=== PATIENT | female | born 1965 | race Caucasian/White ===

== ENCOUNTER 2022-08-30 12:51 | Emergency (ER) | payer MEDICARE, MEDICAID, SELFPAY ==
[2022-08-30] VITALS (7 sets, daily range): BP systolic 127; BP diastolic 68; PULSE 73–86; RESP 18; TEMP 36.8; O2SAT 96–99
--- NOTE | 2022-08-30 18:07 | ED.ABDPAIN ---
HPI - Abdominal Pain General Chief Complaint: Abdominal Pain Stated Complaint: Cramping/abdominal pain Time Seen by Provider: 08/30/22 18:06 Source: patient Mode of arrival: Wheelchair History of Present Illness HPI narrative: 57F nonsmoker with history of prior stroke presents with her son in the chief complaint of sudden onset right lower quadrant and epigastric pain. Patient has some nausea but denies any vomiting. Patient has had no fever or chills. Patient was in normal state of health and denies any new medications or dietary change when she developed a sudden onset right lower quadrant pain. She has an expressive aphasia secondary to her remote stroke but does a very good job of communicating nonverbally and also with some broken speech. It seems that there is no obvious provocation or palliation. She is had no fever chills and denies recent constipation or diarrhea. She is had no dysuria, frequency or urgency. Related Data Previous Rx's Medication Instructions Recorded hyoscyamine sulfate 0.125 mg tablet 0.125 mg PO BID-QID PRN dyspepsia 08/30/22 #20 tabs Allergies Allergy/AdvReac Type Severity Reaction Status Date / Time No Known Drug Allergies Allergy Verified 08/30/22 13:32 Review of Systems Review of Systems Narrative: GENERAL: Denies chills, fatigue, malaise, fever, sweats. HEENT: Denies sinus pain, ear pain, sore throat, difficulty swallowing, dizziness. RESPIRATORY: Denies dyspnea, cough, wheezing, hemoptysis, sputum. CARDIOVASCULAR: Denies chest pain, palpitations, orthopnea, edema, GASTROINTESTINAL: See HPI : Denies dysuria, frequency, incontinence, hematuria, urinary retention. MUSCULOSKELETAL: denies weakness, joint pain, or bony pain SKIN: Denies rash, skin lesions, or other NEUROLOGIC: Denies weakness, headache, numbness, change in speech, confusion, seizures, incoordination. PSYCHIATRIC: No concerning psychosocial issues. 12 point review of systems is negative except for those stated above Exam Narrative Exam Narrative: GENERAL: [57] year old patient appears stated age. Well-developed patient, in mild distress. Expressive aphasia, appears uncomfortable HEAD: Atraumatic. Normocephalic. EYES: Pupils equal round and reactive. Extraocular motions intact. No scleral icterus. No injection or drainage. ENT: Nose without bleeding, purulent drainage. Throat without erythema, tonsillar hypertrophy or exudate. Airway patent. NECK: Trachea midline. Non tender CARDIOVASCULAR: Regular rate and rhythm without murmurs, gallops, or rubs. RESPIRATORY: Clear to auscultation. Breath sounds equal bilaterally. No wheezes, rales, or rhonchi. GASTROINTESTINAL: Abdomen soft, tender in epigastrum and RLQ. Bowel sounds present in all 4 quadrants. EXTREMITIES: No edema or joint tenderness. BACK: Nontender without deformity or crepitance. No flank tenderness. NEURO: CNII-XII SKIN: No rash or erythema of visible areas Initial Vital Signs Initial Vital Signs: Vital Signs Temperature 98.2 F 08/30/22 13:25 Pulse Rate 86 08/30/22 13:25 Respiratory Rate 18 08/30/22 13:25 Blood Pressure 127/68 08/30/22 13:25 Pulse Oximetry 98 08/30/22 13:25 Oxygen Delivery Method 08/30/22 13:25 Course Orders Ordered: ED Orders 08/30/22 18:08 XR abdomen min 2V Stat 08/30/22 19:09 CT abdomen pelvis w con Stat Discontinued Medications Sodium Chloride (Normal Saline 0.9%) 1,000 mls @ 150 mls/hr IV CONT MADINA Vital Signs Vital signs: Vital Signs - 8 hr 08/30/22 17:22 08/30/22 17:30 08/30/22 18:00 Pulse Rate 75 78 74 Pulse Oximetry 96 96 98 08/30/22 18:30 08/30/22 19:00 08/30/22 19:30 Pulse Rate 76 77 73 Pulse Oximetry 97 98 99 MDM - Abdominal Pain Lab Data Result diagrams: 08/30/22 13:46 08/30/22 13:46 Labs: Lab Results 08/30/22 08/30/22 Range/Units 13:46 13:46 WBC 11.0 (4.5-11.0) X10^3/uL RBC 5.06 (4.0-5.2) X10^6/uL Hgb 14.7 (12.0-16.0) g/dL Hct 43.5 (36-46) % MCV 86.0 (80-100) fL MCH 29.1 (26-34) PG MCHC 33.9 (30-36) % RDW 14.4 (11.6-14.8) % Plt Count 352 (150-400) X10^3/uL Neut % (Auto) 78.0 H (50-75) % Lymph % (Auto) 16.4 L (25-40) % Republic % (Auto) 2.9 L (3-14) % Eos % (Auto) 1.6 L (2-4) % Baso % (Auto) 1.1 (0-2) % Neut # (Auto) 8600 H (8877-0659) /uL Lymph # (Auto) 1800 (4518-8557) /uL Republic # (Auto) 300 (0-900) /uL Eos # (Auto) 200 (0-450) /uL Baso # (Auto) 100 (0-100) /uL Sodium 143 (137-145) mmol/L Potassium 3.8 (3.4-5.1) mmol/L Chloride 107 (98-107) mmol/L Carbon Dioxide 23 (22-32) mmol/L BUN 17 (7-17) mg/dL Creatinine 0.61 (0.52-1.04) mg/dL Estimated GFR > 60 (>60) mL/min BUN/Creatinine Ratio 27.9 H (6-22) Glucose 131 H (70-100) mg/dL Calcium 9.5 (8.4-10.2) mg/dL Total Bilirubin 0.3 (0.2-1.3) mg/dL AST 19 (14-36) IU/L ALT 13 (<35) IU/L Alkaline Phosphatase 134 H (38-126) U/L Total Protein 8.3 H (6.3-8.2) g/dL Albumin 4.4 (3.5-5.0) g/dL Globulin 3.9 (1.7-4.1) g/dL Albumin/Globulin Ratio 1.1 (1.0-2.8) Lipase 90 (23-300) U/L Imaging Data Abdominal x-ray: Radiologist's Impression: [address] [address] XRay Report Signed Patient: Cora Yun MR#: [id number] : 1965 Acct:[id number] Age/Sex: 57 / F Date of Service: 08/30/22 Loc: ED Accession Number: [id number] ?? Procedure: XR abdomen min 2V Ordering Provider: Ravin Palacios D.O. PROCEDURE:? XR ABDOMEN MIN 2V ? INDICATIONS:? abdominal pain ? TECHNIQUE:? 2 views of the abdomen were acquired.? ? COMPARISON:? None. ? FINDINGS:? Surgical changes and devices:? None.? ? Bowel:? No pneumoperitoneum.? The bowel gas pattern is normal.? ? Soft tissues:? No masses; visualized solid organ contours appear normal in size.? No suspicious abdominal calcifications.? ? Bones:? No suspicious bony abnormalities.? Bilateral hip arthroplasties. ? IMPRESSION:? Nonobstructive bowel gas pattern. ? ? Dictated by: Mohan Kuhn M.D. on 08/30/2022 at 19:07 ? ? Approved by: Mohan Kuhn M.D. on 08/30/2022 at 19:07 ? CT scan - abdomen/pelvis: Radiologist's Impression: [place] [address] CT Scan Report Signed Patient: Cora Yun MR#: [id number] : 1965 Acct:[id number] Age/Sex: 57 / F Date of Service: 08/30/22 Loc: ED Accession Number: [id number] ?? Procedure: CT abdomen pelvis w con Ordering Provider: Ravin Palacios D.O. PROCEDURE:? CT ABDOMEN PELVIS W CON ? INDICATIONS:? severe abdominal pain ? TECHNIQUE:? After the administration of intravenous contrast, axial sections acquired from the lung bases to the pubic symphysis.? Coronal and sagittal reformats were performed.? For radiation dose reduction, the following was used:? automated exposure control, adjustment of mA and/or kV according to patient size.? ? COMPARISON:? None. ? FINDINGS:? Image quality:? Excellent.? ? Lung bases:? Unremarkable. Heart:? No significant findings. ? ABDOMEN: Liver:? Unremarkable.? ? Gallbladder:? Normal.? ? Biliary ducts:? Unremarkable.? ? Pancreas:? Unremarkable.? ? Spleen:? Unremarkable.? ? Adrenal Glands:? Unremarkable.? ? Kidneys and Ureters:? Unremarkable.? ? ? Stomach and Bowel:? Stomach, small bowel loops, and colon are unremarkable.? Peritoneum:? No abnormal intraperitoneal fluid.? No free air.? ? Ventral Wall: ? No hernias.? Abdominal Nodes:? No retroperitoneal or mesenteric adenopathy by size criteria.? Vessels:? Aorta and inferior vena cava are normal in size.? ? PELVIS: Pelvic Organs:? Unremarkable.? ? Bladder:? Unremarkable.? ? Pelvic Nodes: No enlarged lymph nodes.? Miscellaneous: No hernias are seen. ? ? A normal appearing appendix is identified at the right lower quadrant. ? Bones:? Bilateral hip arthroplasties which produce metal artifact crossing the lower 3rd of the pelvis, and therefore a small portion of the colon is not clearly visualized in this area..? IMPRESSION:? A source of severe abdominal pain is not found.? Normal appendix seen.? Portions of the lowest 3rd of the pelvis are relatively poorly visualized due to metal artifact from bilateral hip arthroplasties. ? ? Dictated by: Tima Jiang M.D. on 08/30/2022 at 20:46 ? ? Approved by: Tima Jiang M.D. on 08/30/2022 at 20:48 ? MDM Narrative Medical decision making narrative: Multiple etiologies for patient's symptoms considered include, but not limited to: [Bowel obstruction versus kidney stone versus diverticulitis versus other Patient's symptoms improved over duration of stay with above-stated therapies. History, physical exam, labs, imaging, and response to therapies have been reassuring. Findings and discharge diagnosis discussed with patient/family followed by verbalization of understanding Return precautions discussed with patient/family whom verbalize understanding. Pain has been well controlled and patient is tolerating oral hydration. Discharge Plan Departure Patient Disposition: Home Clinical Impression: Abdominal pain Instructions: DI for Abdominal Pain-Adult Activity Restrictions/Additional Instructions: *You have been diagnosed with [abdominal pain] * As we discussed your history and physical exam as well as labs and imaging are very reassuring. There is no evidence of any severe diagnoses that would require a specific or immediate intervention. *What to do: *Please continue to take your regular medications as directed. [x ] New medication prescriptions sent to your pharmacy: [ [facility] in [place]] *Please follow up with your primary care provider in 2-3 days, call for an appointment. Let them know you were seen in the Emergency Department and that we ask that you be seen in follow up. We will electronically transmit a record of today's note if your PCP is in our system *Please consider a clear liquid diet for the next 24-48 hours and then slowly advance to regular as tolerated. Also, try to avoid alcohol, nicotine, caffeine, spicy, acidic or fatty foods as this may worsen your symptoms *If you do not have a primary care provider please contact the [facility] Resource line at [phone]. They will ask some questions about your medical history and help get you set up with a doctor in the community. *Return to Emergency Department if you should have any new, worsening or concerning symptoms, such as [fever greater than 101 F, shaking chills, worsening pain, persistent vomiting or other bothersome symptoms] Prescriptions: New hyoscyamine sulfate 0.125 mg tablet 0.125 mg PO BID-QID PRN (Reason: dyspepsia) Qty: 20 0RF Visit Report Forms: Patient Portal/API
--- NOTE | 2022-08-30 18:08 | DI.RAD.S_ITS ---
PROCEDURE: XR ABDOMEN MIN 2V INDICATIONS: abdominal pain TECHNIQUE: 2 views of the abdomen were acquired. COMPARISON: None. FINDINGS: Surgical changes and devices: None. Bowel: No pneumoperitoneum. The bowel gas pattern is normal. Soft tissues: No masses; visualized solid organ contours appear normal in size. No suspicious abdominal calcifications. Bones: No suspicious bony abnormalities. Bilateral hip arthroplasties. IMPRESSION: Nonobstructive bowel gas pattern. Dictated by: Mohan Kuhn M.D. on 08/30/2022 at 19:07 Approved by: Mohan Kuhn M.D. on 08/30/2022 at 19:07
[2022-08-30 18:23] LABS: Alanine Aminotransferase 13 IU/L (<35); Albumin 4.4 g/dL (3.5-5.0); Albumin Globulin Ratio 1.1 (1.0-2.8); Alkaline Phosphatase 134 U/L (38-126); Aspartate Aminotransferase 19 IU/L (14-36); BUN Creatinine Ratio 27.9 (6-22); Bilirubin Total 0.3 mg/dL (0.2-1.3); Blood Urea Nitrogen 17 mg/dL (7-17); Calcium 9.5 mg/dL (8.4-10.2); Carbon Dioxide 23 mmol/L (22-32); Chloride 107 mmol/L (98-107); Estimated Glomerular Filt Rate > 60 mL/min (>60); Globulin 3.9 g/dL (1.7-4.1); Glucose 131 mg/dL (70-100); HEMOLYSIS 19 (0-50); Lipase 90 U/L (23-300); Potassium 3.8 mmol/L (3.4-5.1); Sodium 143 mmol/L (137-145); Total Protein 8.3 g/dL (6.3-8.2)
[2022-08-30 18:27] LABS: Add Manual Diff / Slide Review NO; Basophils Absolute Auto 100 /uL (0-100); Basophils Percent Auto 1.1 % (0-2); Eosinophils Absolute Auto 200 /uL (0-450); Eosinophils Percent Auto 1.6 % (2-4); Hematocrit 43.5 % (36-46); Hemoglobin 14.7 g/dL (12.0-16.0); Lymphocytes Absolute Auto 1800 /uL (1100-4500); Lymphocytes Percent Auto 16.4 % (25-40); Mean Corpuscular HGB Conc 33.9 % (30-36); Mean Corpuscular Hemoglobin 29.1 PG (26-34); Monocytes Absolute Auto 300 /uL (0-900); Monocytes Percent Auto 2.9 % (3-14); Neutrophils Absolute Auto 8600 /uL (1500-7000); Platelet Count 352 X10^3/uL (150-400); Red Blood Cell Count 5.06 X10^6/uL (4.0-5.2); Red Cell Distribution Width 14.4 % (11.6-14.8)
--- NOTE | 2022-08-30 19:09 | DI.CT.S_ITS ---
PROCEDURE: CT ABDOMEN PELVIS W CON INDICATIONS: severe abdominal pain TECHNIQUE: After the administration of intravenous contrast, axial sections acquired from the lung bases to the pubic symphysis. Coronal and sagittal reformats were performed. For radiation dose reduction, the following was used: automated exposure control, adjustment of mA and/or kV according to patient size. COMPARISON: None. FINDINGS: Image quality: Excellent. Lung bases: Unremarkable. Heart: No significant findings. ABDOMEN: Liver: Unremarkable. Gallbladder: Normal. Biliary ducts: Unremarkable. Pancreas: Unremarkable. Spleen: Unremarkable. Adrenal Glands: Unremarkable. Kidneys and Ureters: Unremarkable. Stomach and Bowel: Stomach, small bowel loops, and colon are unremarkable. Peritoneum: No abnormal intraperitoneal fluid. No free air. Ventral Wall: No hernias. Abdominal Nodes: No retroperitoneal or mesenteric adenopathy by size criteria. Vessels: Aorta and inferior vena cava are normal in size. PELVIS: Pelvic Organs: Unremarkable. Bladder: Unremarkable. Pelvic Nodes: No enlarged lymph nodes. Miscellaneous: No hernias are seen. A normal appearing appendix is identified at the right lower quadrant. Bones: Bilateral hip arthroplasties which produce metal artifact crossing the lower 3rd of the pelvis, and therefore a small portion of the colon is not clearly visualized in this area.. IMPRESSION: A source of severe abdominal pain is not found. Normal appendix seen. Portions of the lowest 3rd of the pelvis are relatively poorly visualized due to metal artifact from bilateral hip arthroplasties. Dictated by: Tima Jiang M.D. on 08/30/2022 at 20:46 Approved by: Tima Jiang M.D. on 08/30/2022 at 20:48
== END 2022-08-30 21:25 | disposition home or self-care (01) ==
PROVIDERS: Emergency Provider Emergency Medicine
DX: R10.31 Right lower quadrant pain (principal)
CPT/HCPCS: 74019; 74177; 80053; 83690; 85025; 99281; 99284; Q9967

== ENCOUNTER 2025-03-07 18:20 | Emergency (ER) | payer MEDICARE, MEDICAID, SELFPAY ==
[2025-03-07] VITALS (16 sets, daily range): BP systolic 166–201; BP diastolic 79–115; PULSE 66–84; RESP 20–25; TEMP 36.9; O2SAT 95–100
--- NOTE | 2025-03-07 19:01 | EKG_ITS ---
[address] [address] Test Date: 2025-03-07 Pat Name: Cora Yun Department: [facility] Room: Gender: Female [employer] Helper: JOE : 1965 Requested By: Order Number: [id number] Reading MD: Bear Armstrong Measurements Intervals [place] Rate: 80 P: 55 NM: 162 QRS: -20 QRSD: 88 T: 32 QT: 414 QTc: 477 Interpretive Statements Normal sinus rhythm Nonspecific ST abnormality Electronically Signed On 03-07-2025 20:12:14 PDT by Bear Armstrong
--- NOTE | 2025-03-07 19:01 | DI.RAD.S_ITS ---
PROCEDURE: XR CHEST 1V INDICATIONS: chest pain TECHNIQUE: One view of the chest was acquired. COMPARISON: None. FINDINGS: Surgical changes and devices: Left shoulder arthroplasty with abnormal appearance of the glenoid/scapula. Lungs and pleura: Lungs are clear. Low lung volumes. No pleural effusions or pneumothorax. Mediastinum: Mediastinal contours appear normal. Heart size is normal. Bones and chest wall: No suspicious bony lesions. Overlying soft tissues appear unremarkable. IMPRESSION: No acute cardiopulmonary abnormality is seen. Left shoulder arthroplasty with abnormal appearance of the glenoid/scapula. Consider nonurgent dedicated left shoulder imaging. Dictated by: Joshua Newberry M.D. on 03/07/2025 at 21:12 Approved by: Joshua Newberry M.D. on 03/07/2025 at 21:13
[2025-03-07 19:44] LABS: Add Manual Diff / Slide Review NO; Basophils Absolute Auto 100 /uL (0-100); Eosinophils Absolute Auto 300 /uL (0-450); Eosinophils Percent Auto 4.3 % (2-4); Hematocrit 34.8 % (36-46); Hemoglobin 11.6 g/dL (12.0-16.0); Lymphocytes Absolute Auto 1800 /uL (1100-4500); Lymphocytes Percent Auto 27.6 % (25-40); Mean Corpuscular HGB Conc 33.4 % (30-36); Mean Corpuscular Volume 83.8 fL (80-100); Monocytes Absolute Auto 400 /uL (0-900); Monocytes Percent Auto 6.4 % (3-14); Neutrophils Absolute Auto 4000 /uL (1500-7000); Neutrophils Percent Auto 60.7 % (50-75); Platelet Count 358 X10^3/uL (150-400); Red Blood Cell Count 4.15 X10^6/uL (4.0-5.2); Red Cell Distribution Width 14.3 % (11.6-14.8); White Blood Cell Count 6.7 X10^3/uL (4.5-11.0)
[2025-03-07 19:56] LABS: Alanine Aminotransferase 13 IU/L (<35); Albumin 3.9 g/dL (3.5-5.0); Albumin Globulin Ratio 1.3 (1.0-2.8); Alkaline Phosphatase 100 U/L (38-126); Aspartate Aminotransferase 15 IU/L (14-36); BUN Creatinine Ratio 14.8 (6-22); Bilirubin Total 0.3 mg/dL (0.2-1.3); Blood Urea Nitrogen 9 mg/dL (7-17); Calcium 9.2 mg/dL (8.4-10.2); Carbon Dioxide 28 mmol/L (22-32); Chloride 103 mmol/L (98-107); Creatine Kinase 28 U/L (30-135); Estimated Glomerular Filt Rate > 60 mL/min (>60); Globulin 2.9 g/dL (1.7-4.1); Glucose 157 mg/dL (80-110); HEMOLYSIS 15 (0-50); Lipase 52 U/L (23-300); Potassium 2.8 mmol/L (3.4-5.1); Sodium 139 mmol/L (137-145); Total Protein 6.8 g/dL (6.3-8.2)
[2025-03-07 20:08] LABS: Troponin I < 0.012 ng/mL (0.01-0.034)
[2025-03-07] MEDS: POTASSIUM CHLORIDE IN WATER 10 MEQ/100 ML PIGGYBACK 100 MEQ IV (20:55)
--- NOTE | 2025-03-07 21:22 | PC.NURSE ---
Patient crying and very upset with potassium infusing, potassium is running with fluids, this RN slows down the infusion rate to 75ml/hr and patient is still crying out in pain. Rate slowed to 50ml/hr and patient continues to cry, this RN notifies Dr Brewster who orders to stop the potassium at this time.
--- NOTE | 2025-03-07 22:31 | ED.GENADULT ---
HPI - General Adult General Chief complaint: Hypertension Stated complaint: Hypertension Time Seen by Provider: 03/07/25 22:25 Source: EMS Mode of arrival: EMS History of Present Illness HPI narrative: Patient is a 60-year-old female history of CVA with right-sided deficits resides at [facility] with hypertension. Systolic was in the 200s no presenting today with hypertension. Reports of recent would be evaluation for rule out DVT. Patient denies any symptoms. Has chronic right-sided deficits no chest pain no nausea or vomiting. He has an overall poor historian but appears comfortable low pressure is initially 180/89. At looking at the [facility] it appears that patient was on losartan 50 mg but on March 06 yesterday it was increased to 100 mg. Unclear when she takes this medication. Related Data Previous Rx's Medication Instructions Recorded hyoscyamine sulfate 0.125 mg tablet 0.125 mg PO BID-QID PRN dyspepsia 08/30/22 #20 tabs Allergies Allergy/AdvReac Type Severity Reaction Status Date / Time No Known Drug Allergies Allergy Verified 08/30/22 13:32 Patient History Social History Smoking Status: Never smoker Smoking Status: Never smoker Exam Initial Vital Signs Initial Vital Signs: Vital Signs Temperature 98.4 F 03/07/25 18:22 Pulse Rate 78 03/07/25 18:22 Respiratory Rate 20 03/07/25 18:22 Blood Pressure 180/89 H 03/07/25 18:22 Pulse Oximetry 100 03/07/25 18:22 Oxygen Delivery Method Room Air 03/07/25 18:22 GENERAL: Alert pleasant 60-year-old female and in [no acute] distress. HEENT: Head atraumatic,EOMI, pupils reactive, face symmetric, [moist] mucous membranes CARDIOVASCULAR: Regular rate and rhythm without murmurs, rubs or gallops. RESPIRATORY: Breath sounds equal bilaterally, no wheezes rales or rhonchi. ABDOMEN: Soft, nontender. Normoactive bowel sounds all 4 quadrants. No guarding or rebound. EXTREMITIES: Normal range of motion, no clubbing or edema. Neurovascularly intact Right lower extremity strong distal pedal pulse felt slightly cooler to touch no significant delay in cap refill no gross bony deformity NEUROLOGICAL: Alert 60-year-old female right-sided deficits A&O times 0 SKIN: Warm, dry, no laceration, no petechiae, no rashes or lesions. Course Orders Ordered: ED Orders 03/07/25 19:01 XR chest 1V Stat EKG-12 Lead Stat 03/07/25 19:35 Complete Blood Count AUTO DIFF Stat Comprehensive Metabolic Panel Stat Lipase Stat Troponin & CK Cardiac Panel Stat 03/07/25 22:59 EKG-12 Lead Stat 03/07/25 23:13 Trop I [Troponin I] Stat Discontinued Medications POTASSIUM CHLORIDE IN WATER (Potassium Cl 10 Meq/100 Ml Keshia) 10 meq in 100 mls @ 100 mls/hr IV Q1H MADINA Stop: 03/07/25 22:44 Last Infusion: 03/08/25 00:09 Dose: Infused Documented By: Admin: 03/07/25 22:46 Dose: 65 mls/hr Documented By: Infusion: 03/07/25 22:45 Dose: Infused Documented By: Infusion: 03/07/25 21:40 Dose: 65 mls/hr Documented By: Infusion: 03/07/25 21:21 Dose: 0 mls/hr Documented By: Admin: 03/07/25 20:55 Dose: 100 mls/hr Documented By: EDDY POTASSIUM CHLORIDE IN WATER (Potassium Cl 10 Meq/100 Ml Keshia) 10 meq in 100 mls @ 100 mls/hr IV Q1H MADINA Stop: 03/08/25 02:29 Last Infusion: 03/08/25 02:43 Dose: Infused Documented By: Admin: 03/08/25 01:41 Dose: 100 mls/hr Documented By: Infusion: 03/08/25 01:33 Dose: Infused Documented By: Admin: 03/08/25 00:33 Dose: 100 mls/hr Documented By: SHELDON Losartan Potassium (Losartan 50 Mg Tablet) 50 mg PO NOW ONE Stop: 03/08/25 00:08 Last Admin: 03/08/25 00:15 Dose: 50 mg Documented By: SHELDON Vital Signs Vital signs: Vital Signs - 8 hr 03/07/25 20:00 03/07/25 20:00 03/07/25 20:30 Pulse Rate 76 Respiratory Rate 25 H Blood Pressure 180/82 H 175/82 H Pulse Oximetry 96 03/07/25 20:30 03/07/25 21:00 03/07/25 21:00 Pulse Rate 75 73 Respiratory Rate 22 25 H Blood Pressure 166/79 H Pulse Oximetry 96 97 03/07/25 21:30 03/07/25 21:30 03/07/25 22:00 Pulse Rate 68 84 Respiratory Rate 23 23 Blood Pressure 173/85 H Pulse Oximetry 03/07/25 22:00 03/07/25 22:08 03/07/25 22:08 Pulse Rate 68 Respiratory Rate 24 Blood Pressure 172/109 H 172/84 H Pulse Oximetry 97 03/07/25 22:30 03/07/25 22:30 03/07/25 22:51 Pulse Rate 75 Respiratory Rate 23 Blood Pressure 180/101 H 177/96 H Pulse Oximetry 97 03/07/25 22:51 03/07/25 23:00 03/07/25 23:00 Pulse Rate 70 66 Respiratory Rate 24 25 H Blood Pressure 182/102 H Pulse Oximetry 96 96 03/07/25 23:30 03/07/25 23:30 03/08/25 00:00 Pulse Rate 66 66 Respiratory Rate 24 22 Blood Pressure 201/98 H Pulse Oximetry 96 96 03/08/25 00:01 03/08/25 00:01 03/08/25 00:15 Pulse Rate 63 65 Respiratory Rate 21 Blood Pressure 196/94 H 196/94 H Pulse Oximetry 96 03/08/25 00:30 03/08/25 00:31 03/08/25 00:31 Pulse Rate 66 65 Respiratory Rate 24 24 Blood Pressure 193/95 H Pulse Oximetry 03/08/25 01:00 03/08/25 01:02 03/08/25 01:02 Pulse Rate 66 62 Respiratory Rate Blood Pressure 194/91 H Pulse Oximetry 97 91 03/08/25 01:15 03/08/25 01:15 03/08/25 01:30 Pulse Rate 63 Respiratory Rate Blood Pressure 193/94 H 209/94 H Pulse Oximetry 100 03/08/25 01:30 03/08/25 02:00 03/08/25 02:01 Pulse Rate 65 66 66 Respiratory Rate 18 Blood Pressure Pulse Oximetry 99 100 100 03/08/25 02:12 03/08/25 02:29 03/08/25 02:29 Pulse Rate 64 71 Respiratory Rate Blood Pressure 239/142 H Pulse Oximetry 97 97 03/08/25 02:30 03/08/25 03:00 03/08/25 03:01 Pulse Rate 63 62 Respiratory Rate Blood Pressure 193/101 H Pulse Oximetry 98 97 03/08/25 03:01 Pulse Rate 69 Respiratory Rate Blood Pressure Pulse Oximetry 97 Medical Decision Making Lab Data 03/07/25 19:35 03/07/25 19:35 Labs: Lab Results 03/07/25 03/07/25 Range/Units 19:35 23:13 WBC 6.7 (4.5-11.0) X10^3/uL RBC 4.15 (4.0-5.2) X10^6/uL Hgb 11.6 L (12.0-16.0) g/dL Hct 34.8 L (36-46) % MCV 83.8 (80-100) fL MCH 28.0 (26-34) PG MCHC 33.4 (30-36) % RDW 14.3 (11.6-14.8) % Plt Count 358 (150-400) X10^3/uL Neut % (Auto) 60.7 (50-75) % Lymph % (Auto) 27.6 (25-40) % [place] % (Auto) 6.4 (3-14) % Eos % (Auto) 4.3 H (2-4) % Baso % (Auto) 1.0 (0-2) % Neut # (Auto) 4000 (4293-9617) /uL Lymph # (Auto) 1800 (5006-1118) /uL [place] # (Auto) 400 (0-900) /uL Eos # (Auto) 300 (0-450) /uL Baso # (Auto) 100 (0-100) /uL Sodium 139 (137-145) mmol/L Potassium 2.8 L (3.4-5.1) mmol/L Chloride 103 (98-107) mmol/L Carbon Dioxide 28 (22-32) mmol/L BUN 9 (7-17) mg/dL Creatinine 0.61 (0.52-1.04) mg/dL Estimated GFR > 60 (>60) mL/min BUN/Creatinine Ratio 14.8 (6-22) Glucose 157 H (80-110) mg/dL Calcium 9.2 (8.4-10.2) mg/dL Total Bilirubin 0.3 (0.2-1.3) mg/dL AST 15 (14-36) IU/L ALT 13 (<35) IU/L Alkaline Phosphatase 100 (38-126) U/L Total Creatine Kinase 28 L (30-135) U/L Troponin I < 0.012 < 0.012 (0.01-0.034) ng/mL Total Protein 6.8 (6.3-8.2) g/dL Albumin 3.9 (3.5-5.0) g/dL Globulin 2.9 (1.7-4.1) g/dL Albumin/Globulin Ratio 1.3 (1.0-2.8) Lipase 52 (23-300) U/L Imaging Data Chest x-ray: Radiologist's Impression: PROCEDURE: XR CHEST 1V INDICATIONS: chest pain TECHNIQUE: One view of the chest was acquired. COMPARISON: None. FINDINGS: Surgical changes and devices: Left shoulder arthroplasty with abnormal appearance of the glenoid/scapula. Lungs and pleura: Lungs are clear. Low lung volumes. No pleural effusions or pneumothorax. Mediastinum: Mediastinal contours appear normal. Heart size is normal. Bones and chest wall: No suspicious bony lesions. Overlying soft tissues appear unremarkable. IMPRESSION: No acute cardiopulmonary abnormality is seen. Left shoulder arthroplasty with abnormal appearance of the glenoid/scapula. Consider nonurgent dedicated left shoulder imaging. Dictated by: Joshua Newberry M.D. on 03/07/2025 at 21:12 ECG Data Attestation: I personally reviewed and interpreted this ECG as follows: Prior ECG tracings: not available for review Interpretation: Sinus rhythm rate 80 OR interval 162 QRS [address] depression noted V6 the mild artifact noted as well EKGs 2. Sinus rhythm rate 62 OR interval 182 QRS [address] changes improved actually from previous EKGs MDM Narrative Medical decision making narrative: MDM CC: Hypertension Complicating co-morbidities: Poor historian CVA with right-sided deficits long-term care facility Data collected from: EMS, attempted call to son for further information Medical records reviewed: Would be records reviewed she was there on 03/06/2025. Patient having increasing right lower extremity pain it is noted that she had settle right ankle and foot edema mild hyperemia of right toes but cap refill is 2 seconds right foot was slightly cooler to touch than the left. Had x-ray is previous ultrasound that did not show any evidence of DVT no pathologic fractures found Previous visit on 03/02/2025 ED records report that she had discoloration of her toes but palpable pulses significant expressive aphasia have poor historian exam showed pitting edema in the right lower leg cap refill good A&O times 0 is baseline ultrasound does not show any evidence of DVT Differential considered: [ ] Exam documented above, pertinent findings include: Alert 60-year-old poor historian right side deficits, right lower extremity has a good strong pulse cap refill less than 2 seconds abdomen soft no respiratory distress Lab Test results independently reviewed as above. Pertinent findings: WBC is 6.7 hemoglobin 11.6 hematocrit 34.8 platelets 358 Bilirubin liver enzymes within normal limits Troponin negative x2 CMP shows mild hypokalemia with a potassium of 2.8 sodium and creatinine within normal limits creatinine 0.61 Independently reviewed EKG as above Initial EKGs had some artifact but did show some ST depression in V6 P EKGs shows sinus rhythm no artifact and no ST changes Imaging studies independently reviewed: Chest x-ray no acute cardiopulmonary process Consultations: None Treatments: Potassium chloride K rider 40 mEq, losartan 50 Re-evaluations: [ ] Discussion: Patient is a 60-year-old female presenting to day with hypertension. She has been seen at emergency department's twice this week already for right lower extremity abnormality. X-rays and ultrasound do not show any abnormality she has a good strong pulse no evidence of cyanosis it was slightly cool to touch but has a good palpable pulse and good cap refill. Unclear why she was here today was noted to have hypertension but just started on losartan 100 mg yesterday which is double the dose from previously 50. Blood pressure has come down to a systolic of the 160s in the ED but started slowly increasing during her stay. She remains relatively asymptomatic. She was found to be mildly hypokalemic with a potassium of 2.8 she was given a K rider for replacement along with losartan At this time she seems to be at her baseline mental status needs follow up with primary in regards to further blood pressure control. No concern for peripheral vascular disease in her right lower leg no evidence of DVT Attempted to call son however no answer left a voicemail Discharge Plan Departure Patient Disposition: Home Clinical Impression: Hypertension, Acute hypokalemia Instructions: DI for High Blood Pressure Activity Restrictions/Additional Instructions: *You have been diagnosed with low potassium 2.8 and hypertension *What to do: At this time received a replacement IV potassium. Blood pressure medication losartan was increased on March 06 from 50-100 this will take a couple of days to take effect. Please continue to monitor and primary care provider will need to adjust medication Have potassium rechecked this week *Continue to take medications as directed Continue losartan 100 mg daily. She was given 50 mg in the emergency department *Follow up with your primary care provider in 2-3 days or call [phone] *Return to ER if you should have increasing confusion weakness pain or any new, worsening or concerning symptoms Prescriptions: No Action hyoscyamine sulfate 0.125 mg tablet 0.125 mg PO BID-QID PRN (Reason: dyspepsia) Qty: 20 0RF Referrals: Miscellaneous,Doctor, MD [Primary Care Provider] - Stand Alone Forms: Patient Portal/API/Survey
[2025-03-07] MEDS: POTASSIUM CHLORIDE IN WATER 10 MEQ/100 ML PIGGYBACK 65 MEQ IV (22:46)
--- NOTE | 2025-03-07 22:59 | EKG_ITS ---
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
[2025-03-07 23:47] LABS: Troponin I < 0.012 ng/mL (0.01-0.034)
[2025-03-08] VITALS (16 sets, daily range): BP systolic 193–239; BP diastolic 91–142; PULSE 62–71; RESP 18–24; O2SAT 91–100
[2025-03-08] MEDS: LOSARTAN 50 MG TABLET PO (00:15)
[2025-03-08] MEDS: POTASSIUM CHLORIDE IN WATER 10 MEQ/100 ML PIGGYBACK 100 MEQ IV ×2 (00:33→01:41)
== END 2025-03-08 03:21 | disposition home or self-care (01) ==
PROVIDERS: Emergency Provider Emergency Medicine
DX: I10 Essential (primary) hypertension (principal); E87.6 Hypokalemia; R07.9 Chest pain, unspecified
CPT/HCPCS: 36415; 71045; 80053; 82550; 83690; 84484; 85025; 93005; 93010; 96365; 96366; 99284